=== PATIENT | female | born 1950 | race Asian ===

== ENCOUNTER 2018-07-08 12:19 | Emergency (ER) | payer MEDICARE, OTHER ==
[~2018-07-08 12:19] MED LIST: DYA PO; FENO48PT PO; GARL1TAB9 PO; LISI-362 PO; METF-420 PO; MULT-1381 PO; SITA100T PO
--- NOTE | 2018-07-08 12:28 | ER Report ---
History and Physical Time Seen By MD: 12:28 Hx. of Stated Complaint: PT CUT FINGER ON STEEL WHILE TRYING TO MOVE IT 45 MIN AGO HPI/ROS CHIEF COMPLAINT: Cut finger on steel HISTORY OF PRESENT ILLNESS: 67 year old female presents with cut on palmar side of fourth finger on right hand. Patient reports the incident happened approximately 1 hour ago. She was helping her move steel when she sliced her finger on the edge of the steel. Denies any crush injury. Reports pain a 7 out of 10 to that finger. Reports she can flex and extend that finger against gravity and with resistance. ROS: Constitutional: Denies fevers Cardiovascular: Denies chest pain, palpitations Respiratory: Denies sob, cough, difficulty breathing GI: Denies nausea, vomiting MSK: Reports she can flex and extend her fourth finger on right hand. Skin: Reports cut to fourth finger on right hand. Allergies: Coded Allergies: No Known Allergies (Verified Allergy, Intermediate, 07/08/18) Home Meds Active Scripts Cephalexin 500 Mg Tab (KEFLEX 500 MG TAB) 500 Mg Tablet, 500 MG PO TID for 5 Days, #15 TAB Prov:SONYA LAWSON [facility] 07/08/18 Reported Medications Garlic (GARLIC) 1 Each Tablet, 1 EACH PO DAILY 12/20/15 Multivitamin (ONCE DAILY) 1 Each Tablet, 1 EACH PO DAILY 12/20/15 Sitagliptin Phosphate (JANUVIA) 100 Mg Tablet, 100 MG PO QDAY 12/20/15 Triamterene/Hctz (Dyazide 37.5-25 Mg) 1 Ea Cap, 0.5 TAB PO QDAY, 0 Refills 11/30/10 Lisinopril (Lisinopril) 10 Mg Tablet, 10 MG PO QDAY, 0 Refills 11/30/10 Metformin Hcl (Glucophage) 1,000 Mg Tablet, 1000 MG PO BIDBS, 0 Refills 11/30/10 Fenofibrate,Micronized (Tricor) 48 Mg Tablet, 48 MG PO QDAY, 0 Refills 11/30/10 Past Medical/Surgical History Patient has significant past medical history of hypertension, hypercholest erolemia, NIDDM, and in need of 3 LPM O2 via NC at night. No significant past surgical history. Reviewed Nurses Notes: Yes Hx Smoking: No Smoking Status: Never Smoker Hx Substance Use Disorder: No Hx Alcohol Use: No Constitutional Vital Sign - Last 24 Hours 07/08/18 07/08/18 12:22 14:00 Temp 97.9 Pulse 108 Resp 20 B/P (MAP) 151/108 128/83 (98) Pulse Ox 90 O2 Delivery Room Air Physical Exam General appearance: Alert and in no acute distress; no immediate need for airway protection. Respiratory: Chest is non tender, lungs are clear to auscultation. Cardiac: Regular rate and rhythm Skin: 1 cm X .5 cm cut to fourth finger on right hand. Moderate amount of bleeding from the wound. Patient has cut into the fat pad with the proximal end of the laceration consisting of a flap of subcutaneous tissue; the distal aspect of the cut is connected to the rest of the finger. Patient able to flex and extend against gravity and with resistance. DIFFERENTIAL DIAGNOSIS: After history and physical exam differential diagnosis was considered for laceration to fourth finger of right hand. Medical Decision Making ED Course/Re-evaluation ED Course Patient admitted to an exam room, history and physical obtained, differentials considered. Patient presents with cut on palmar side of fourth finger on right hand. Patient reports the incident happened approximately 1 hour ago. She was helping her move steel when she sliced her finger on the edge of the steel. Denies any crush injury. Reports pain a 7 out of 10 to that finger. Reports she can flex and extend that finger against gravity and with resistance. Cut is approximately 1 cm X .5 cm to the palmar surface of the fourth finger of right hand. Patient has cut into the fat pad with the proximal end of the laceration consisting of a flap of subcutaneous tissue; the distal aspect of the cut is connected to the rest of the finger. Patient able to flex and extend against gravity and with resistance. Finger numbed with 5ccs of lidocaine and 5 ccs of bupivicaine. Finger cleaned and finger tourniquet placed. Stitches placed around edges of the laceration. Tourniquet removed, bleeding stopped. Finger dressed with tube gauze. Keflex prescribed TID for prophylaxis. Patient to take ibuprofen and or tylenol for pain and to follow-up with PCP in 7-10 days for stitches removal. Patient agrees with plan of care. Procedure: Laceration repair. Verbal consent was obtained from the patient. The 1 cm laceration on the right fourth finger was anesthetized in the usual fashion. The wound was scrubbed, aped and explored to its base with a gloved finger. There were no deep structures involved. No tendon injury was identified. The wound was repaired with 10 simple interrupted sutures using 5-0 Prolene material. The wound repair was simple. The procedure was performed by myself. Decision to Disposition Date: Jul 08, 2018 Decision to Disposition Time: 14:03 Depart Departure Latest Vital Signs Vital Signs Date Time Temp Pulse Resp B/P (MAP) Pulse Ox O2 Delivery O2 Flow Rate FiO2 07/08/18 14:00 128/83 (98) 07/08/18 12:22 97.9 108 20 90 Room Air Impression: Primary Impression: Laceration of finger of right hand without foreign body Condition: Improved Disposition: HOME OR SELF-CARE Referrals: SAM TRUONG (PCP) New Scripts Cephalexin 500 Mg Tab (KEFLEX 500 MG TAB) 500 Mg Tablet 500 MG PO TID for 5 Days, #15 TAB Prov: SONYA LAWSON 07/08/18 Patient Instructions: Finger Laceration (ED) Additional Instructions: Please take your antibiotic three times a day for 5 days until it is gone. You may take ibuprofen or tylenol as needed for pain relief. Please follow-up with your primary care provider in 7-10 days for removal of your stitches. Please return to the ED if you experience any fever, pus draining from your wound, red streaks on your finger that start at the wound, or for any other concerns. Problem Qualifiers Primary Impression: Laceration of finger of right hand without foreign body Encounter type: initial encounter Finger: ring finger Damage to nail status: without damage Qualified Codes: S61.214A - Laceration without foreign body of right ring finger without damage to nail, initial encounter SONYA LAWSON Jul 08, 2018 12:28
[2018-07-08] MEDS ORDERED: DIPHTH/TETANUS/ACEL. PERTUSSIS IM ONLY ONE (12:35)
[2018-07-08 14:00] VITALS: BP 128/83
[2018-07-08] MEDS ORDERED: CEPH500T7 PO (14:03)
== END 2018-07-08 14:10 | disposition home or self-care (01) ==
LOC: ER 12:27
DX: S61.214A Laceration without foreign body of right ring finger without damage to nail, initial encounter (principal); W45.8XXA Other foreign body or object entering through skin, initial encounter
CPT/HCPCS: 90471; 90715; 99283